=== PATIENT | female | born 1995 | race Caucasian/White ===

== ENCOUNTER 2025-05-05 14:13 | Outpatient (AMB) | payer OTHER, SELFPAY ==
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
--- OUTSIDE RECORDS SUMMARY | 2025-05-05 15:32 | XMS_ITS ---
Author Name [facility] Organization Unknown Care Team Organization Name Specialty Phone Email Start Date End Da te [facility] Reema Darden APRN Primary Care 01/06/2023 04/19/2024 [facility] Mary Dempsey Primary Care 07/09/2022
--- OUTSIDE RECORDS SUMMARY | 2025-05-05 15:32 | XMS_ITS | Clinical Summary ---
Author Organization [address] [facility] Address [address] [place] [address] Phone Care Team Providers Care Electrician Telephone Name Role Phone Elizabeth Aleman MD Primary Care Provider [phone] Allergies Active Allergy Reactions Criticality Noted Date Comments Amoxicillin Hives Medium 06/11/2012 Cefaclor Hives Medium 06/11/2012 Nitrofurantoin Monohyd/M-Cryst Anaphylaxis High 10/31 Rash/Hives/SOB Medications magnesium oxide (MAG-OX) 400 mg magnesium tablet Take 1 Tablet by mouth 2 times daily. 4 Active PNV,calcium 74-xnwh-duqrv acid (M-Kendell Plus) 27 mg iron- 1 mg tablet TAKE 1 TABLET BY MOUTH EVERY DAY 4 Active Magnesium, oxide/AA chelate, 300 mg capsule Take 1 capsule by mouth 1 (one) time each day. 4 Active magnesium oxide (MAG-OX) 400 mg (241.3 elemental magnesium) tablet Take 1 tablet (400 mg total) by mouth 2 (two) times a day. 4 Active estradioL (ESTRACE) 0.01 % (0.1 mg/gram) vaginal cream Apply 1gm pv daily x1wk then twice wkly for maintenance 42.5 g 3 5 Active nystatin-triamc inolone (MYCOLOG II) ointment Apply topically 2 (two) times a day. 15 g 3 5 Active cholecalciferol (Vitamin D3) 50 mcg (2,000 unit) tablet Take 1 tablet (2,000 Units total) by mouth 1 (one) time each day. 90 tablet 2 5 Active cyanocobalamin 2,000 mcg tablet Take 1 tablet (2,000 mcg total) by mouth 1 (one) time per week. 12 tablet 3 5 Active labetaloL (NORMODYNE) 200 mg tablet Take 1 tablet (200 mg total) by mouth 2 (two) times a day. 180 each 2 5 Active spironolactone (ALDACTONE) 25 mg tablet Take 1 tablet (25 mg total) by mouth 1 (one) time each day. 90 each 3 5 Active potassium chloride (KLOR-CON) 10 mEq CR tablet Take 1 tablet (10 mEq total) by mouth 2 (two) times a day. 180 each 3 5 Active ferrous sulfate 325 mg (65 mg elemental iron) tablet TAKE 1 TABLET BY MOUTH EVERY DAY 90 tablet 4 5 Active albuterol HFA (ProAir HFA) 90 mcg/actuation inhalerIndicati ons:Chronic cough,Recurrent URI (upper respiratory infection) Inhale 2 puffs by mouth every 4 (four) hours if needed for wheezing or shortness of breath. 8.5 g 3 5 Active tirzepatide, weight loss, (Zepbound) 2.5 mg/0.5 mL injection Inject 0.5 mL (2.5 mg total) under the skin every 7 (seven) days. 2 mL 1 5 Active Additional Information Patient not taking.Reported on 04/25/2025 norethindrone (LORRAINE MULLER H EATHER,MICRONOR ) 0.35 mg tablet Take 1 tablet (0.35 mg total) by mouth 1 (one) time each day. 84 tablet 3 5 026 Active norethindrone (YOHANALORRAINE H EATHER,MICRONOR ) 0.35 mg tablet Take 1 tablet (0.35 mg total) by mouth 1 (one) time each day. 84 tablet 3 4 025 Discontin u([facility]) Hospital, Clinic, or Other Facility Administered Medication Ordered Dose Route Frequency Start Date End Date Status dextromethorphan-guai fenesin 5-100 mg/5 mL liquid 5 mLIndications:Chronic cough 5 mL oral 3 times daily PRN 07/07/2024 Active Active Problems Problem Noted Date Diagnosed Date HTN (hypertension), benign 11/02/2024 Vitamin D deficiency 11/02/2024 Vitamin B12 deficiency 11/02/2024 Anemia during in third trimester 12/28 Overview (06/22/2024): Cutoff hemoglobin levels: First trimester <11.0 Second trimester <10.5 Third trimester <11.0 <10.0 -If micro or normocytic anemia - tx with oral Fe (sulfate or gluconate) every other day, repeat CBC 2-3 weeks -If normalized, continue until 6 weeks -If not normalized, make sure compliant and if so, refer to Heme for iron infusion -If macrocytic anemia with MCV>100, then order B12 and folate levels and treat prn, recheck in 2-3 weeks -If normalized, continue until 6 weeks -If not, make sure compliant and if so, refer to Heme Gestational hypertension 12/14/2023 Overview (06/22/2024): 12/14/2023- Triage elevated BP 154/86 and 140/78. Needs repeat PCR if elevated 12/24: bp 147/86, preeclamptic labs today 01/27: instructed to stop the labetolol by dr messer, if elevated bp [facility] to [facility] if continue elvated transfer needed for inpt care of elevated bp since pt is <35wks, she is suspected preeclampsia even though labs are not showing. CBC, AST, ALT, creatinine and P/C ratio at diagnosis- normal labs, PCR-0.29 Repeat serum labs and P/C weekly- Assess growth at time of diagnosis and Q4 weeks Weekly NST at diagnosis (if <32 weeks consider MFM consult) If blood pressures in severe range patient needs inpatient evaluation. Diagnose and treat as pre-eclampsia with severe features Deliver at 37 weeks BP check 1 week PP ASA 162 mg daily starting at 12 weeks in future pregnancies for pre-eclampsia prevention Order Referral to PCP Hypokalemia 12/14/2023 Overview (06/22/2024): Taking potasium supplements Referred to [facility] Marijuana use 08/21/2023 Overview (06/22/2024): + intake 3/1 + Ovarian cyst, left 08/12/2023 Overview (06/22/2024): 08/12: 1.9x1.9x2.0 Subchorionic bleed 08/12/2023 Overview (06/22/2024): 08/12: small subchorionic bleeding 3.3x.5x2.3 counseled pt nothing in vagina until resolved f/u if excess bleeding Anxiety associated with depression 12/21/2013 Overview (06/22/2024): Stopped Prozac and trazadone first trimester. 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 Overview (06/22/2024): 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 FOB to be tested- order placed through [facility]- test results are negative for FOB (results sent to scanning) IBS (irritable bowel syndrome) 06/11/2012 Encounters Date Type Department Care Team Description 04/25/2025 2:15 PM EDT Office Visit Obstetrics and Gynecology [address] [phone] Hill, Noemi, CNM Surveillance of contraceptive pill (Primary Dx) 04/01/2025 Telephone Internal Medicine [facility] [address] [phone] Elizabeth Aleman MD 03/18/2025 Telephone Internal Medicine [address] [phone] Elizabeth Aleman MD 03/17/2025 2:30 PM EDT Office Visit Internal Medicine [address] [phone] Tania Rutherford NP Primary hypertension (Primary Dx); BMI 45.0-49.9, adult (CMS/HCC V24, CMS/HCC V28); Low back pain with sciatica, sciatica laterality unspecified, unspecified back pain laterality, unspecified chronicity; Chronic cough; Recurrent URI (upper respiratory infection) 02/10/2025 2:30 PM EDT Office Visit Nephrology [address] [phone] Shashi Howard MD Hypokalemia (Primary Dx); Hypomagnesemia; HTN (hypertension), benign 02/02/2025 11:00 AM EDT Office Visit Obstetrics and Gynecology [address] [phone] Jn Bradford CNM Irregular menstrual cycle (Primary Dx); Oral contraceptive pill surveillance; Elevated blood pressure reading in office with diagnosis of hypertension from Last 3 Months Immunizations Name Administration Dates Next Due Influenza Quadravalent, MDCK , 0.5ml, preservative free (Flucelvax) 6mo and older 09/04/2023 Influenza trivalent, 0.5mL, preservative free (Fluarix; FluLaval; Fluzone) ages 6mo and older (Afluria) 3 years and older 05/24/2014 Influenza, Unspecified 09/04/2022 Moderna SARS-CoV-2 COVID-19, mRNA, LNP-S, preservative free 07/26/2022,09/24/2021,01/31/2021,2020 Tdap Tetanus diptheria acell ular pertussis (Boostrix; Adacel) 7yo and older 12/25/2023,06/02/2014 Varicella live (Varivax) 12m o and older 04/06/2024 Surgical History Surgery Date Site/Laterality Comments SECTION 07/02/2014 PROCEDURE: HISTORICAL DELIVERY Medical History Medical History Date Comments Anxiety and depression DX:Anxiet y and depression; COMMENT: uses MJ Migraine with aura DX:Migraine w ith aura Cystic fibrosis carrier DX:Cysti c fibrosis carrier Hypokalemia DX:Hypokalemia Hypomagnesemia DX:Hypomagnesemi a Family History Medical History Relation Name Comments Breast cancer Aunt paternal aunt Other: heart issues Father Dementia Mother Hypertension Mother Colon cancer Neg Hx Ovarian cancer Neg Hx Relation Name Status Comments Aunt Brother Alive Father Alive Mother Alive Sister 1 Alive Sister 2 Alive Social History Tobacco Use Types Packs/Day Years Used Date Smoking Tobacco: Former Smokeless Tobacco: Never Tobacco Cessation:Counseling Given: Not Answered Alcohol Use Standard Drinks/Week Comments No 0 (1 standard drink = 0.6 oz pur e alcohol) Comments No Sex and Gender Information Value Date Recorded Sex Assigned at Not on file Legal Sex Female 6:49 AM EST Gender Identity Not on file Sexual Orientation Not on file Obstetrics History Para Term AB IAB SAB Ectopic Multiple Livin g Live Births 2 2 2 2 2 Date Outcome GA Total Labor Labor/2nd/3rd Weight Sex Type Anes PTL Lilliana A1 A5 Name Clin 2013 Term 38w 5d 24h 00m/ 2977 g (105 oz) M CS-Un spec [facility] Comments:Failed IOL, p reecllampsia 2023 Term 37w 2d M CS-Un spec Livin g Last Filed Vital Signs Vital Sign Reading Time Taken Comments Blood Pressure 129/77 04/25/2025 2:23 PM EDT Pulse 66 04/25/2025 2:23 PM EDT Temperature 36.4 C (97.6 F) 03/17/2025 2:23 PM EDT Respiratory Rate 14 04/25/2025 2:23 PM EDT Oxygen Saturation 98% 03/17/2025 2:23 PM EDT Inhaled Oxygen Concentration - - Weight 110 kg (242 lb 9.6 oz) 04/25/2025 2:23 PM EDT Height 157.5 cm (5' 2 ) 03/17/2025 2:23 PM EDT Body Mass Index 44.37 03/17/2025 2:23 PM EDT Plan of Treatment Upcoming Encounters Date Type Department Care Team (Late st Contact Info) Description 09/15/2025 1:15 PM EST Office Visit Nephrology [facility] [address] [place] [phone] Shashi Howard MD [address] [facility] [address] [place] [phone] 09/19/2025 2:30 PM EST Office Visit Internal Medicine - [place] [address] [facility] [address] [place] [phone] Elizabeth Aleman MD [address] [place] [phone] Health Maintenance Due Date Last Done Comments Hepatitis B Vaccines (1 of 3 - 19+ 3-dose series) 2014 Social Influencers of Health Screening 08/04/2022 Depression Screening 09/01/2024 COVID-19 Vaccine ( season) 2025 07/30/2022, 07/26/2022, 09/24/2021, Additional history exists Influenza Vaccine (#1) 2025 , 09/04/2022, 05/24/2014 Hypertension/CHF/CAD Annual BMP Blood Test 11/17/2025 11/17/2024, 06/21/2024, 06/21/2024, Additional history exists Cervical Cancer Screening: Pap Smear 04/16/2026 04/16/2023, 04/16/2023, 07/25/2020 Cholesterol Screening (Lipid Panel) 06/21/2029 06/21/2024, 06/21/2024 DTaP,Tdap,and Td Vaccines (3 - Td or Tdap) 12/24/2033 12/25/2023, 06/02/2014 HIV Screening Completed 08/20/2023 Hepatitis C Screening Completed 08/20/2023 Varicella Vaccines Aged Out 04/06/2024, 02/25/2024 No longer eligible based on patient's age to complete this topic HIB Vaccines Aged Out No longer eligi ble based on patient's age to complete this topic HPV Vaccines Aged Out No longer eligi ble based on patient's age to complete this topic Hepatitis A Vaccines Aged Out No long er eligible based on patient's age to complete this topic IPV Vaccines Aged Out No longer eligi ble based on patient's age to complete this topic MMR Vaccines Aged Out No longer eligi ble based on patient's age to complete this topic Meningococcal ACWY Vaccine Aged Out N o longer eligible based on patient's age to complete this topic Meningococcal B Vaccine Aged Out No l onger eligible based on patient's age to complete this topic Pneumococcal Vaccine: Pediatrics (0 to 5 Years) and At-Risk Patients (6 to 49 Years) Aged Out No longer eligible based on patient's age to complete this topic RSV Immunization Patients Under 20 months Aged Out No longer eligible based on patient's age to complete this topic Procedures Procedure Name Priority Date/Time Associated Diagnosis Comments HCG, QUANTITATIVE Routine 02/02/2025 11: 25 AM EDT Irregular menstrual cycle POC PREGANCY, URINE SCREENING Routine 02/02/2025 11:09 AM EDT Irregular menstrual cycle COMPREHENSIVE METABOLIC PANEL Routine 11/17/2024 11:46 AM EDT Anemia during in third trimester Hypomagnesemia Hypokalemia LIPID PANEL Routine 06/21/2024 HEPATITIS C SCREENING Routine 08/20/2023 HIV SCREENING Routine 08/20/2023 HPV Routine 04/16/2023 from Last 3 Months or Most Recently Relevant to Health Maintenance Results * HCG, quantitative (02/02/2025 11:25 AM EDT) hCG Quant <1 mIU/mL LAB CHEMISTRY METHOD 02/02/2025 3:02 PM EDT [facility] Blood Venous blood specimen / Unknown Venipuncture / Unknown 02/02/2025 11:25 AM EDT 02/02/2025 11:25 AM EDT Narrative [facility] - 02/02/2025 3:02 PM EDT Quantitative HCG Reference Ranges Time after Conception MIU/ML 0.2-1 Week 5-50 1-2 Weeks 50-500 2-3 Weeks 100-5,000 3-4 Weeks 500-10,000 4-5 Weeks 1,000-50,000 5-6 Weeks 10,000-100,000 6-8 Weeks 15,000-200,000 2-3 Months 10,000-100,000 2nd Trimester 1,000-94,000 3rd Trimester 2,500-90,000 Non- Females 1-3 [facility] LAB BLOOD ORDERABLES Final Re sult [facility] [address] [place] [address], [place] [phone] * POC , urine NO CHARGE screening manually resulted (02/02/2025 11:09 AM EDT) HCG, Ur POC Negative Negative POC hCG Int QC Pass? Yes Yes Urine Urine specimen obtained by clean catch procedure / Unknown 02/02/2025 11:09 AM EDT [facility] [place] [facility] TEST ENTER/EDIT ORDERABLES Final Result * Comprehensive metabolic panel (11/17/2024 11:46 AM EDT) Sodium 136 133 - 145 mmol/L LAB CHEMISTRY METHOD 11/17/2024 4:19 PM EDT [facility] Potassium 3.6 3.5 - 5.5 mmol/L LAB CHEMISTRY METHOD 11/17/2024 4:19 PM EDT [facility] Chloride 103 96 - 110 mmol/L LAB CHEMISTRY METHOD 11/17/2024 4:19 PM [facility] CO2 28 21 - 32 mmol/L LAB CHEMISTRY METHOD 11/17/2024 4:19 PM [facility] Anion Gap 5 3 - 11 LAB CHEMISTRY METHOD 11/17/2024 4:19 PM [facility] Glucose 93 70 - 100 mg/dL LAB CHEMISTRY METHOD 11/17/2024 4:19 PM [facility] BUN 10 5 - 25 mg/dL LAB CHEMISTRY METHOD 11/17/2024 4:19 PM [facility] Creatinine 0.64 0.50 - 1.10 mg/dL LAB CHEMISTRY METHOD 11/17/2024 4:19 PM [facility] eGFR 123 >=60 mL/min/1. 73m2 LAB CHEMISTRY METHOD 11/17/2024 4:19 PM [facility] Comment:Calculation based on the Chronic Kidney Disease Epidemiology Collaboration (CKD-EPI) equation refit without adjustment for race. BUN/Creatinine Ratio 15.6 LAB CHEMISTRY METHOD 11/17/2024 4:19 PM [facility] Calcium 9.5 8.5 - 10.5 mg/dL LAB CHEMISTRY METHOD 11/17/2024 4:19 PM [facility] AST (SGOT) 14 10 - 42 unit/L LAB CHEMISTRY METHOD 11/17/2024 4:19 PM [facility] ALT (SGPT) 27 10 - 60 unit/L LAB CHEMISTRY METHOD 11/17/2024 4:19 PM [facility] Alkaline Phosphatase 100 42 - 121 unit/L LAB CHEMISTRY METHOD 11/17/2024 4:19 PM [facility] Total Protein 7.2 6.0 - 8.0 g/dL LAB CHEMISTRY METHOD 11/17/2024 4:19 PM [facility] Albumin 3.8 3.2 - 5.0 g/dL LAB CHEMISTRY METHOD 11/17/2024 4:19 PM EDT [facility] Total Bilirubin 0.4 0.0 - 1.4 mg/dL LAB CHEMISTRY METHOD 11/17/2024 4:19 PM EDT [facility] Blood Venous blood specimen / Unknown Venipuncture / Unknown 11/17/2024 11:46 AM EDT 11/17/2024 11:46 AM EDT Elizabeth Aleman MD LAB BLOOD ORDERABLES Final Res ult [facility] [address] [place] [address], [place] [phone] * (ABNORMAL) Lipid panel (06/21/2024) [facility] LDL/HDL Ratio 3 0 - 4 Triglycerides 80 0 - 150 mg/dL Cholesterol 193 0 - 200 mg/dL HDL 66 >=40 mg/dL LDL Cholesterol 111(A) 0 - 100 mg/dL Blood Venous blood specimen / Unknown Result [facility] LAB BLOOD ORDERABLES Lisa l Result * HIV Screening (08/20/2023) [facility] HIV Screening Abstracted Result [facility] HEALTH MAINTENANCE Final Result * Hepatitis C Screening (08/20/2023) [facility] Hepatitis C Screening Abstracted Result [facility] Historical Provider HEALTH MAINTENANCE Final Result * Cervical Cancer Screening: HPV (04/16/2023) [facility] Cervical Cancer Screening: HPV Negative [facility] HEALTH MAINTENANCE Final Result from Last 3 Months or Most Recently Relevant to Health Maintenance Insurance [facility] [place] [address] Care Teams Electrician Telephone Relationship Specialty Start Date End Date Elizabeth Aleman MD [address] [place] [address] [address] [place] [phone] PCP - General Internal Medicine 10/26/24
== END 2025-05-05 14:39 | disposition home or self-care (01) ==
LOC: HO.HSM 14:14
PROVIDERS: PCP Internal Medicine; Referring Provider Internal Medicine; Visit Provider Registered Nurse
DX: M54.16 Radiculopathy, lumbar region (principal)
CPT/HCPCS: 99214

== ENCOUNTER → 2025-05-05 14:13 | Outpatient (BNVA) | payer OTHER, SELFPAY | PROVIDERS: PCP Internal Medicine; Referring Provider Internal Medicine; Visit Provider Registered Nurse | DX: M54.16 Radiculopathy, lumbar region (principal) | CPT/HCPCS: 99212 ==

== ENCOUNTER 2025-05-19 19:52 | Outpatient (REF) | payer OTHER, SELFPAY ==
--- NOTE | ~2025-05-19 | MR_ITS ---
EXAMINATION: MR LUMBAR SPINE WITHOUT IV CONTRAST History: M54.16 - Radiculopathy, lumbar region Technique: Sagittal T1, T2 and STIR, and axial T1 and T2 weighted images of the lumbar spine were obtained per departmental protocol. Comparison: There are no prior studies available for comparison. Findings: The vertebral bodies maintain normal height and alignment. There is a rounded focus of increased intensity in the L1 vertebral body on both T1 and T2-weighted sequences, consistent with a hemangioma. Bone marrow signal intensity is otherwise normal. The intervertebral discs maintain normal height and hydration. At T12-L1,there is no evidence of disc herniation, central spinal stenosis, or neural foraminal narrowing. At L1-2, there is no evidence of disc herniation, central spinal stenosis, or neural foraminal narrowing. At L2-3, there is no evidence of disc herniation, central spinal stenosis, or neural foraminal narrowing. There is a 1.3 cm probable synovial cyst on the left projecting posteriorly. At L3-4, there is no evidence of disc herniation, central spinal stenosis, or neural foraminal narrowing. At L4-5, there is no evidence of disc herniation, central spinal stenosis, or neural foraminal narrowing. At L5-S1, there is no evidence of disc herniation, central spinal stenosis, or neural foraminal narrowing. There is a 1.1 cm probable synovial cyst on the left projecting exteriorly. The conus terminates at the L1 level and demonstrates normal signal intensity. The visualized paraspinal soft tissues are unremarkable. MR/MR lumbar spine wo con Impression: Probable left-sided synovial cysts at the L2-3 and L5-S1 levels, as described. Otherwise unremarkable MRI of the lumbar spine. Electronically signed by: Adonay Ramsey MD 05/20/2025 07:37 AM EDT
== END 2025-05-19 19:53 | disposition home or self-care (01) ==
LOC: HO.MRI 19:52
PROVIDERS: PCP Internal Medicine; Visit Provider Registered Nurse
DX: M54.16 Radiculopathy, lumbar region (principal)
CPT/HCPCS: 72148

== ENCOUNTER → 2025-05-19 19:52 | Outpatient (BNV) | payer OTHER, SELFPAY | PROVIDERS: PCP Internal Medicine; Visit Provider Radiology Diagnostic Radiology | DX: M54.16 Radiculopathy, lumbar region (principal) | CPT/HCPCS: 72148 ==

== ENCOUNTER 2025-06-08 10:14 | Outpatient (AMB) | payer OTHER, SELFPAY ==
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
== END 2025-06-08 11:43 | disposition home or self-care (01) ==
LOC: HO.HSM 10:15
PROVIDERS: PCP Internal Medicine; Visit Provider Registered Nurse
DX: M71.38 Other bursal cyst, other site (principal); M54.16 Radiculopathy, lumbar region
CPT/HCPCS: 99214

== ENCOUNTER → 2025-06-08 10:14 | Outpatient (BNVA) | payer OTHER, SELFPAY | PROVIDERS: PCP Internal Medicine; Visit Provider Registered Nurse | DX: M71.38 Other bursal cyst, other site (principal); M54.16 Radiculopathy, lumbar region | CPT/HCPCS: 99212 ==

== ENCOUNTER 2025-07-21 15:48 | Outpatient (AMB) | payer OTHER, SELFPAY ==
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
--- OUTSIDE RECORDS SUMMARY | 2025-07-21 20:47 | XMS_ITS | Clinical Summary ---
Author Organization 175 [facility] Address [address] [place] [address] Phone Care Team Providers Care Physical Therapy Nurse Name Role Phone Elizabeth Aleman MD Primary Care Provider [phone] Allergies Active Allergy Reactions Criticality Noted Date Comments Amoxicillin Hives Medium 06/11/2012 Cefaclor Hives Medium 06/11/2012 Nitrofurantoin Monohyd/M-Cryst Anaphylaxis High 10/31 Rash/Hives/SOB Medications estradioL (ESTRACE) 0.01 % (0.1 mg/gram) vaginal cream Apply 1gm pv daily x1wk then twice wkly for maintenance 42.5 g 3 10/25/19 25 Active cholecalciferol (Vitamin D3) 50 mcg (2,000 unit) tablet Take 1 tablet (2,000 Units total) by mouth 1 (one) time each day. 90 tablet 2 11/03/19 25 Active cyanocobalamin 2,000 mcg tablet Take 1 tablet (2,000 mcg total) by mouth 1 (one) time per week. 12 tablet 3 11/03/19 25 Active labetaloL (NORMODYNE) 200 mg tablet Take 1 tablet (200 mg total) by mouth 2 (two) times a day. 180 each 2 11/03/19 25 Active potassium chloride (KLOR-CON) 10 mEq CR tablet Take 1 tablet (10 mEq total) by mouth 2 (two) times a day. 180 each 3 02/11/20 25 Active ferrous sulfate 325 mg (65 mg elemental iron) tablet TAKE 1 TABLET BY MOUTH EVERY DAY 90 tablet 4 03/17/20 25 Active albuterol HFA (ProAir HFA) 90 mcg/actuation inhalerIndicati ons:Chronic cough,Recurrent URI (upper respiratory infection) Inhale 2 puffs by mouth every 4 (four) hours if needed for wheezing or shortness of breath. 8.5 g 3 03/17/20 25 Active norethindrone (OYHANA,LORRAINE,H EATHER,MICRONOR ) 0.35 mg tablet Take 1 tablet (0.35 mg total) by mouth 1 (one) time each day. 84 tablet 3 04/25/20 25 Active magnesium oxide (MAG-OX) 400 mg (241.3 elemental magnesium) tablet TAKE 1 TABLET BY MOUTH TWICE A DAY 180 tablet 3 05/16/20 25 Active albuterol HFA (PROAIR HFA ; PROVENTIL HFA ; VENTOLIN HFA) 90 mcg/actuation inhaler Inhale 2 puffs by mouth every 6 (six) hours if needed for wheezing or shortness of breath. 1 each 05/24/20 25 Active medroxyPROGESTE Chilo (PROVERA) 5 mg tablet Take 1 tablet (5 mg total) by mouth 1 (one) time each day. 14 tablet 3 06/01/20 25 Active triamcinolone (KENALOG) 0.025 % ointment Apply 3-4x/day to affected area 15 g 1 06/01/20 25 Active fluconazole (DIFLUCAN) 150 mg tablet TAKE 1 TABLET (150 MG TOTAL) BY MOUTH 1 (ONE) TIME FOR 1 DOSE. TAKE ONE TAB REPEAT DOSE IN 3DAYS 06/01/20 25 Active magnesium oxide (MAG-OX) 400 mg magnesium tablet Take 1 Tablet by mouth 2 times daily. 03/11/20 24 025 Discontinued PNV,calcium 17-jykq-lftqy acid (M-Kendell Plus) 27 mg iron- 1 mg tablet TAKE 1 TABLET BY MOUTH EVERY DAY 05/10/20 24 025 Discontinued Magnesium, oxide/AA chelate, 300 mg capsule Take 1 capsule by mouth 1 (one) time each day. 11/27/19 025 Discontinued nystatin-triamc inolone (MYCOLOG II) ointment Apply topically 2 (two) times a day. 15 g 3 10/25/19 25 025 Discontinued spironolactone (ALDACTONE) 25 mg tablet Take 1 tablet (25 mg total) by mouth 1 (one) time each day. 90 each 3 02/11/20 25 025 Discontinued medroxyPROGESTE Chilo (PROVERA) 2.5 mg tablet Take 1 tablet (2.5 mg total) by mouth 1 (one) time each day. 90 tablet 3 05/19/20 025 Discontinued nystatin (MYCOSTATIN) 100,000 unit/mL suspension Swish and swallow 5 mL QID for 1 week 150 mL 05/31/20 Discontinued hydrocortisone (ANUSOL-HC) 2.5 % rectal cream Insert into the rectum 4 (four) times a day if needed for hemorrhoids (rectal discomfort). 30 g 5 05/31/20 025 Discontinued ondansetron (ZOFRAN) 4 mg tablet Take 1 tablet (4 mg total) by mouth every 8 (eight) hours if needed for nausea or vomiting for up to 7 days. 20 tablet 06/20/20 gabapentin (NEURONTIN) 300 mg capsule PLEASE SEE ATTACHED FOR DETAILED DIRECTIONS 02/10/20 025 Discontinued meloxicam (MOBIC) 15 mg tablet Take 1 tablet (15 mg total) by mouth 1 (one) time each day. 06/08/20 025 Discontinued Hospital, Clinic, or Other Facility Administered Medication Ordered Dose Route Frequency Start Date End Date Status dextromethorphan-guai fenesin 5-100 mg/5 mL liquid 5 mLIndications:Chronic cough 5 mL oral 3 times daily PRN 07/07/2024 Active Active Problems Problem Noted Date Diagnosed Date HTN (hypertension), benign 11/02/2024 Vitamin D deficiency 11/02/2024 Vitamin B12 deficiency 11/02/2024 Anemia during in third trimester 04/29 /2024 Overview (06/22/2024): Cutoff hemoglobin levels: First trimester [...] dr messer, if elevated bp send to [facility] if continue elvated transfer needed for inpt [...] Overview (06/22/2024): Taking potasium supplements Referred to [facility] Marijuana use 08/21/2023 Overview (06/22/2024): + intake [...] [facility]), denies SI/HI Maternal varicella, non-immune 12/07/2013 Overview (06/22/2024): Offer vaccine post 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 Overview (06/22/2024): 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 FOB to be tested- order placed through [employer]- test results are negative for FOB (results sent to scanning) IBS (irritable bowel syndrome) 06/11/2012 Encounters Date Type Department Care Team Description 07/06/2025 Telephone Gastroenterology - [place] 175 [facility] 175 [facility] [address] [place] [address] Jing Cole MD 07/04/2025 Telephone Gastroenterology - [place] [address] [address] [place] [address] Miriam Seth NP 06/29/2025 2:55 PM EDT Lab Draw Station - [facility] [address] [place] [address] Vitamin B12 deficiency; Transaminitis; Bloody diarrhea; Generalized abdominal pain 06/22/2025 2:00 PM EDT Consult Gastroenterology - [place] [address] [place] [address] Miriam Seth NP Bloody diarrhea (Primary Dx); Generalized abdominal pain; Nausea and vomiting in adult patient; Marijuana use, continuous; Transaminitis; Vitamin B12 deficiency 06/21/2025 Telephone Internal Medicine [facility] [address] [phone] Elizabeth Aleman MD 06/20/2025 5:25 PM EDT - 06/20/2025 11:02 PM EDT Emergency [facility] Emergency [address] [place] [phone] Leann Colby MD Nausea and vomiting, unspecified vomiting type (Primary Dx); Fatty liver Discharge Disposition: Home or Self Care 06/20/2025 Telephone Internal Medicine [facility] [address] [phone] Elizabeth Aleman MD 06/20/2025 Telephone Internal Medicine [address] [phone] Elizabeth Aleman MD 06/10/2025 Results Follow-Up Internal Medicine - [address] [phone] Leonard Ovalle [place] 06/09/2025 11:45 AM EDT Office Visit Internal Medicine [address] [phone] Elizabeth Aleman MD Sore throat (Primary Dx) 06/02/2025 1:15 PM EDT Ancillary Procedure Pulmonology - [address] [phone] LEAVITT (dyspnea on exertion) 06/02/2025 Results Follow-Up Pulmonology - [address] [phone] Lennox Anderson MD 06/01/2025 Results Follow-Up Internal Medicine [address] [phone] Elizabeth Aleman MD 05/31/2025 1:45 PM EDT Office Visit Internal Medicine [address] [phone] Elizabeth Aleman MD HTN (hypertension), benign (Primary Dx); Hypokalemia; Anemia during in third trimester; Vitamin B12 deficiency; Oral pain 05/31/2025 Telephone Obstetrics and Gynecology [address] [phone] Jn Bradford CNM 05/30/2025 Telephone Internal Medicine - [address] [phone] Dharmesh Nieshawilfredo [place] 05/24/2025 3:00 PM EDT Consult Pulmonology [address] [phone] Sheela Adams MD LEAVITT (dyspnea on exertion) (Primary Dx); Recurrent URI (upper respiratory infection); Marijuana smoker; Loud snoring 05/19/2025 3:15 PM EDT Office Visit Obstetrics & Gynecology - [address] [phone] Jn Bradford CNM Oral contraceptive pill surveillance (Primary Dx); Breakthrough bleeding on control pills 05/16/2025 Telephone Obstetrics and Gynecology [address] [phone] Noemi Hill CNM 05/10/2025 2:45 PM EDT Office Visit Internal Medicine [address] [phone] Elizabeth Aleman MD Nose pain (Primary Dx); Hypokalemia; Primary hypertension 05/09/2025 Telephone Internal Medicine [address] [phone] Elizabeth Aleman MD 04/25/2025 2:15 PM EDT Office Visit Obstetrics and Gynecology [address] [phone] Noemi Hill CNM Surveillance of contraceptive pill (Primary Dx) from Last 3 Months Immunizations Immunization Administration Dates Next Due Influenza Quadravalent, MDCK [...] M CS-Un spec Epidur al Livin g Keon Barnes Delivery Location:[facility] Comments:Failed IOL, p reecllampsia 2023 Term 37w 2d M CS-Un spec Livin g Last Filed Vital Signs Vital Sign Reading Time Taken Comments Blood Pressure 130/80 06/22/2025 2:06 PM EDT Pulse 69 06/22/2025 2:06 PM EDT Temperature 36.6 C (97.9 F) 06/20/2025 8:15 PM EDT Respiratory Rate 20 06/20/2025 8:15 PM EDT Oxygen Saturation 97% 06/22/2025 2:06 PM EDT Inhaled Oxygen Concentration - - Weight 95.3 kg (210 lb 3.2 oz) 06/22/2025 2:06 P M EDT Height 152.4 cm (5') 06/22/2025 2:06 PM EDT Body Mass Index 41.05 06/22/2025 2:06 PM EDT Plan of Treatment Upcoming Encounters Date Type Department Care Team (Late st Contact Info) Description 07/27/2025 1:[address] Scan - [address] [phone] 08/18/2025 4:15 PM EST Office Visit Pulmonology - [place] 175 [facility] 200 [place] [phone] Sheela Adams MD [address] [place] [phone] 09/05/2025 3:00 PM EST Appointment [facility] Endoscopy [address] [place] [phone] Jing Cole MD 299 [facility] 419 [place] [address] 09/15/2025 1:15 PM EST Office Visit Nephrology - [address] [phone] Shashi Howard MD 3550 [facility] 204 [place] [phone] 09/19/2025 2:30 PM EST Office Visit Internal Medicine - [address] [place] [address] Elizabeth Aleman MD [address] [place] [address] Health Maintenance Due Date Last Done Comments Hepatitis B Vaccines (1 of 3 - 19+ 3-dose series) 2014 HPV Vaccines (1 - 3-dose SCDM series) 2022 Social Influencers of Health Screening 08/04/2022 Depression Screening 09/01/2024 COVID-19 Vaccine ( season) 2025 07/30/2022, 07/26/2022, 09/24/2021, Additional history exists Influenza Vaccine (#1) 2025 , 09/04/2022, 05/24/2014 Hypertension/CHF/CAD Annual BMP Blood Test 06/20/2026 06/20/2025, 05/31/2025, 11/17/2024, Additional history exists Cervical Cancer Screening: HPV 04/16/2028 04/16/2023 Cholesterol Screening (Lipid Panel) 06/21/2029 06/21/2024, 06/21/2024 DTaP,Tdap,and Td Vaccines (3 - Td or Tdap) 12/24/2033 12/25/2023, 06/02/2014 RSV Immunization Adult Patients (1 - 1-dose 75+ series) 2070 HIV Screening Completed 08/20/2023 Hepatitis C Screening [...] on patient's age to complete this topic Goals Goal Patient Goal Type Associated Problems Recent Progress Patient-Stated? Author Autogenerat ed Goal Care Plan Autogenerated Problem No Soumya Guerrero Procedures Procedure Name Priority Date/Time Associated Diagnosis Comments CALPROTECTIN, STOOL Routine 06/29/2025 2 :56 PM EDT Bloody diarrhea Generalized abdominal pain HELICOBACTER PYLORI ANTIGEN, STOOL Routine 06/29/2025 2:56 PM EDT Bloody diarrhea Generalized abdominal pain CBC WITH AUTO DIFFERENTIAL Routine 06/22/2025 2:30 PM EDT HTN (hypertension), benign Hypokalemia Vitamin B12 deficiency LEAVITT (dyspnea on exertion) Primary hypertension GLIADIN ANTIBODIES, SERUM Routine 06/22/2025 2:30 PM EDT Diarrhea, unspecified type Generalized abdominal pain ENDOMYSIAL ANTIBODY, IGA Routine 06/22/2025 2:30 PM EDT Diarrhea, unspecified type Generalized abdominal pain TISSUE TRANSGLUTAMINASE, IGA Routine 06/22/2025 2:30 PM EDT Diarrhea, unspecified type Generalized abdominal pain IMMUNOGLOBULIN IGA Routine 06/22/2025 2: 30 PM EDT Diarrhea, unspecified type Generalized abdominal pain CBC AND DIFFERENTIAL Routine 06/22/2025 2:30 PM EDT HTN (hypertension), benign Hypokalemia Vitamin B12 deficiency LEAVITT (dyspnea on exertion) Primary hypertension THYROID STIMULATING HORMONE WITH REFLEX TO FREE T4 AND FREE T3 Routine 06/22/2025 2:30 PM EDT HTN (hypertension), benign Hypokalemia Vitamin B12 deficiency LEAVITT (dyspnea on exertion) Primary hypertension IMMUNOGLOBULIN IGA Routine 06/22/2025 2: 30 PM EDT Diarrhea, unspecified type Generalized abdominal pain TISSUE TRANSGLUTAMINASE, IGG Routine 06/22/2025 2:30 PM EDT Diarrhea, unspecified type Generalized abdominal pain C-REACTIVE PROTEIN Routine 06/22/2025 2: 30 PM EDT Diarrhea, unspecified type Generalized abdominal pain ECG ANNOTATED 06/22/2025 CT ABDOMEN PELVIS W CONTRAST STAT 06/20/2025 8:49 PM EDT ECG 12-LEAD STAT 06/20/2025 6:12 PM EDT HCG, SERUM, QUALITATIVE STAT Add-on 06/20/2025 1:45 PM EDT MAGNESIUM STAT Add-on 06/20/2025 1:45 PM EDT CBC WITH AUTO DIFFERENTIAL STAT 06/20/2025 1:45 PM EDT LIPASE STAT 06/20/2025 1:45 PM EDT COMPREHENSIVE METABOLIC PANEL STAT 06/20/2025 1:45 PM EDT CBC AND DIFFERENTIAL STAT 06/20/2025 1:45 PM EDT POC RAPID [id number], MOLECULAR Routine 06/09/2025 12:38 PM EDT Sore throat POC RAPID STREP A Routine 06/09/2025 12: 37 PM EDT Sore throat POC INFLUENZA A/B Routine 06/09/2025 12: 33 PM EDT Sore throat PULMONARY FUNCTION TESTING Routine 06/02/2025 2:33 PM EDT LEAVITT (dyspnea on exertion) CBC WITH AUTO DIFFERENTIAL Routine 05/31/2025 2:19 PM EDT HTN (hypertension), benign Hypokalemia Anemia during in third trimester Vitamin B12 deficiency MAGNESIUM Routine 05/31/2025 2:19 PM EDT Hypokalemia Primary hypertension COMPREHENSIVE METABOLIC PANEL Routine 05/31/2025 2:19 PM EDT HTN (hypertension), benign Hypokalemia Anemia during in third trimester Vitamin B12 deficiency CBC AND DIFFERENTIAL Routine 05/31/2025 2:19 PM EDT HTN (hypertension), benign Hypokalemia Anemia during in third trimester Vitamin B12 deficiency SEDIMENTATION RATE Routine 05/31/2025 2: 19 PM EDT HTN (hypertension), benign Hypokalemia Anemia during in third trimester Vitamin B12 deficiency MONONUCLEOSIS SCREEN Routine 05/31/2025 2:19 PM EDT HTN (hypertension), benign Hypokalemia Anemia during in third trimester Vitamin B12 deficiency LIPID PANEL Routine 06/21/2024 HM HEPATITIS C SCREENING Routine 08/20/2023 HM HIV SCREENING Routine 08/20/2023 HM HPV Routine 04/16/2023 from Last 3 Months or Most Recently Relevant to Health Maintenance Results * Calprotectin, stool (06/29/2025 2:56 PM EDT) Calprotectin, Fecal <5.0 <50 mcg/g 07/04/2025 3:23 PM EST [facility] Comment: <50 mcg/g Normal 50 - 120 mcg/g Borderline >120 mcg/g Abnormal Borderline results suggest repeat testing in 4 to 6 weeks. Test performed at [facility], [address], [place] [address] Hyacinth Collins MD, PhD - Trimmer And Borer Machine Operator Stool Rectum structure / Unknown Non-blood Collection / Unknown 06/29/2025 2:56 PM EDT 06/29/2025 2:56 PM EDT Miriam Seth NP LAB BODY FLUIDS AND STOOLS ORDVidhi RIVER Final Result [facility] [address] [place] [address] * Helicobacter pylori antigen, stool (06/29/2025 2:56 PM EDT) Helicobacter Pylori Ag Not detected Not detected 07/05/2025 1:20 PM EST [facility] Comment: This test was performed at [facility] using a chemiluminescent immunoassay intended for the qualitative determination of helicobacter pylori (H. pylori) antigen in human stool. The test is an aid in the diagnosis of patients suspected of H. pylori infection and to measure post therapy response from patients. Assay results should be used in conjunction with other clinical and laboratory data to assist the clinician in making individual patient management decisions. A negative test result does not preclude the possibility of the presence of H. pylori antigen in the specimen, which may occur if the level of antigen is below the detection limit of the test. Antimicrobials, proton pump inhibitors, and bismuth preparations are known to suppress H. pylori and, if ingested, may give a false negative result. In these cases a new fecal sample should be collected and tested 14 days after treatment has stopped. Positive results from patients that have used antibiotics, PPIs, or bismuth compounds in the 14 days prior to fecal sample collection are still considered accurate. This assay has not been evaluated in a pediatric population. This test has been approved as an in vitro diagnostic by the [place] Food and Drug Administration. Test performed at [facility], [address], [place] [address] Hyacinth Collins MD, PhD - Trimmer And Borer Machine Operator Stool Rectum structure / Unknown Non-blood Collection / Unknown 06/29/2025 2:56 PM EDT 06/29/2025 2:56 PM EDT us Miriam Seth NP LAB BODY FLUIDS AND STOOLS MINAL HOLMAN Final Result Performing Organization Address City/[facility]/ZIP Co de Phone Number [facility] [address] [place] [address] * Thyroid stimulating hormone with reflex to free t4 and free t3 (06/22/2025 2:30 PM EDT) Pathologist [facility] TSH 2.04 0.40 - 4.00 mcIU/mL LAB CHEMISTRY METHOD 06/22/2025 7:27 PM EDT [facility] Blood Venous blood specimen / Unknown Venipuncture / Unknown 06/22/2025 2:30 PM EDT 06/22/2025 2:30 PM EDT Sheela Adams MD LAB BLOOD ORDERABLES Final Resul t Performing Organization Address City/[facility]/ZIP Co de Phone Number [facility] [address] [place] [address], [place] [phone] * Endomysial antibody, IgA (06/22/2025 2:30 PM EDT) Pathologist [facility] Endomysial IgA Negative Negative 06/24/2025 10:59 AM EDT [facility] Blood Venous blood specimen / Unknown Venipuncture / Unknown 06/22/2025 2:30 PM EDT 06/22/2025 2:30 PM EDT Miriam Seth MANAGER CONSTRUCTION LAB BLOOD ORDERABLES Final Resu lt Performing Organization Address City/[facility]/ZIP Co de Phone Number [facility] [address] [place] [address], [place] [phone] * (ABNORMAL) CBC auto differential (06/22/2025 2:30 PM EDT) Only the most recent of3 resultswithin the time period is included. Pathologist [facility] WBC 9.5 4.8 - 10.8 K/mcL LAB HEMETOLOGY METHOD 06/22/2025 6:32 PM EDT [facility] RBC 5.40(H) 3.80 - 4.80 M/mcL LAB HEMETOLOGY METHOD 06/22/2025 6:32 PM EDT [facility] Hemoglobin 15.7 11.5 - 16.0 g/dL LAB HEMETOLOGY METHOD 06/22/2025 6:32 PM EDT [facility] Hematocrit 46.8 35.0 - 47.0 % LAB HEMETOLOGY METHOD 06/22/2025 6:32 PM EDT [facility] MCV 86.5 79.0 - 98.0 FL LAB HEMETOLOGY METHOD 06/22/2025 6:32 PM EDT [facility] MCH 29.0 27.0 - 32.0 pcg LAB HEMETOLOGY METHOD 06/22/2025 6:32 PM [facility] MCHC 33.5 32.0 - 37.0 g/dL LAB HEMETOLOGY METHOD 06/22/2025 6:32 PM EDT [facility] RDW 14.5 11.0 - 15.0 % LAB HEMETOLOGY METHOD 06/22/2025 6:32 PM T [facility] Platelets 346 130 - 400 K/mcL LAB HEMETOLOGY METHOD 06/22/2025 6:32 PM [facility] MPV 10.1 7.0 - 11.0 FL LAB HEMETOLOGY METHOD 06/22/2025 6:32 PM EDT [facility] NRBC 0.0 <1.0 % LAB HEMETOLOGY METHOD 06/22/2025 6:32 PM EDT [facility] NRBC Absolute 0.00 <0.10 K/mcL LAB HEMETOLOGY METHOD 06/22/2025 6:[facility] Neutrophils Relative 56.0 % LAB HEMETOLOGY METHOD 06/22/2025 6:32 PM EDT [facility] Lymphocytes Relative 32.5 % LAB HEMETOLOGY METHOD 06/22/2025 6:32 PM EDT [facility] Monocytes Relative 10.5 % LAB HEMETOLOGY METHOD 06/22/2025 6:32 PM EDT [facility] Eosinophils Relative 0.3 % LAB HEMETOLOGY METHOD 06/22/2025 6:32 PM EDT [facility] Basophils Relative 0.5 % LAB HEMETOLOGY METHOD 06/22/2025 6:32 PM EDT [facility] Immature Granulocytes Relative 0.2 % LAB HEMETOLOGY METHOD 06/22/2025 6:32 PM EDT [facility] Neutrophils Absolute 5.29 1.50 - 7.00 K/mcL LAB HEMETOLOGY METHOD 06/22/2025 6:32 PM T [facility] Lymphocytes Absolute 3.07 1.00 - 5.00 K/mcL LAB HEMETOLOGY METHOD 06/22/2025 6:32 PM T [facility] Monocytes Absolute 0.99 0.20 - 1.00 K/mcL LAB HEMETOLOGY METHOD 06/22/2025 6:32 PM EDT [facility] Eosinophils Absolute 0.03 0.00 - 0.50 K/mcL LAB HEMETOLOGY METHOD 06/22/2025 6:32 PM T [facility] Basophils Absolute 0.05 0.00 - 0.20 K/mcL LAB HEMETOLOGY METHOD 06/22/2025 6:32 PM T [facility] Immature Granulocytes Absolute 0.02 0.00 - 0.03 K/mcL LAB HEMETOLOGY METHOD 06/22/2025 6:32 PM [facility] Blood Venous blood specimen / Unknown Venipuncture / Unknown 06/22/2025 2:30 PM EDT 06/22/2025 2:30 PM EDT us Sheela Adams MD LAB BLOOD ORDERABLES Final Resul t Performing Organization Address [facility]/ZIP Co de Phone Number [facility] [address] [place] [address], [place] [phone] * Gliadin antibodies, serum (06/22/2025 2:30 PM EDT) Gliadin IgA 7 <20 units LAB CHEMISTRY METHOD 06/29/2025 11:11 AM EDT [facility] Gliadin IgG 6 <20 units LAB CHEMISTRY METHOD 06/29/2025 11:11 AM EDT [facility] Gliadin IgA Antibody Negative Negative LAB CHEMISTRY METHOD 06/29/2025 11:11 AM EDT [facility] Gliadin IgG Antibody Negative Negative LAB CHEMISTRY METHOD 06/29/2025 11:11 AM EDT [facility] Blood Venous blood specimen / Unknown Venipuncture / Unknown 06/22/2025 2:30 PM EDT 06/22/2025 2:30 PM EDT us Miriam Seth NP LAB BLOOD ORDERABLES Final Resu lt Performing Organization Address City/[facility]/ZIP Co de Phone Number [facility] [address] [place] [address], [place] [phone] * Tissue transglutaminase, IgA (06/22/2025 2:30 PM EDT) Tissue Transglutaminase Ab, IgA Quant 1 <4 unit/mL LAB CHEMISTRY METHOD 06/29/2025 10:55 AM EDT [facility] Tissue Transglutaminase Ab, IgA Negative Negative LAB CHEMISTRY METHOD 06/29/2025 10:55 AM EDT [facility] Blood Venous blood specimen / Unknown Venipuncture / Unknown 06/22/2025 2:30 PM EDT 06/22/2025 2:30 PM EDT us Miriam Seth NP LAB BLOOD ORDERABLES Final Resu lt Performing Organization Address City/[facility]/ZIP Co de Phone Number [facility] [address] [place] [address], [place] [phone] * (ABNORMAL) Tissue transglutaminase, IgG (06/22/2025 2:30 PM EDT) [facility] t-Transglutamin ase (tTG) IgG 11(H) 0 - 5 U/mL 06/24/2025 9:05 PM EDT [facility] Comment: Negative 0 - 5 Weak Positive 6 - 9 Positive >9 Blood Venous blood specimen / Unknown Venipuncture / Unknown 06/22/2025 2:30 PM EDT 06/22/2025 2:30 PM EDT Narrative [facility] - 06/24/2025 9:05 PM EDT Performed at: [facility] [id number] Insurance Administrator: Nataly Lal MD, Phone: [phone] Miriam Seth LAB BLOOD ORDERABLES Final Resu lt Performing Organization Address City/[facility]/ZIP Co de Phone Number [facility] * (ABNORMAL) C-reactive protein (06/22/2025 2:30 PM EDT) [facility] C-Reactive Protein 1.69(H) <=0.50 mg/dL LAB CHEMISTRY METHOD 06/22/2025 6:41 PM EDT [facility] Blood Venous blood specimen / Unknown Venipuncture / Unknown 06/22/2025 2:30 PM EDT 06/22/2025 2:30 PM EDT Miriam Seth LAB BLOOD ORDERABLES Final Resu lt Performing Organization Address City/[facility]/ZIP Co de Phone Number [facility] [address] [place] [address], [place] [phone] * Immunoglobulin IgA (06/22/2025 2:30 PM EDT) IgA 341 61 - 348 mg/dL LAB CHEMISTRY METHOD 06/22/2025 6:41 PM EDT [facility] Blood Venous blood specimen / Unknown Venipuncture / Unknown 06/22/2025 2:30 PM EDT 06/22/2025 2:30 PM EDT Miriam Seth NP LAB BLOOD ORDERABLES Final Resu lt [facility] [address] [place] [address], [place] [phone] * ECG-Annotated (06/22/2025) us Provider Onbase MD ECG ORDERABLES Final Result * CT Abdomen Pelvis w Contrast (06/20/2025 8:49 PM EDT) Anatomical Region Laterality Modality Body Computed Tomogra phy 06/20/2025 9:51 PM EDT Impressions 06/20/2025 9:51 PM EDT Mild diffuse fatty infiltration of the liver. This document has been electronically signed by: Devyn Portillo MD on 06/20/2025 21:51:02 Narrative 06/20/2025 9:51 PM EDT INDICATION: Abdominal pain, acute, no prior medical history CT abdomen and pelvis with contrast Comparison: CT/SR - ABDOMEN AND PELVIS C- CT - 09/20/22 22:09 EST Findings: The lung bases are clear. Mild diffuse fatty infiltration of the liver. The gallbladder, spleen, pancreas, adrenals and kidneys are unremarkable. No bowel obstruction, pneumoperitoneum, or pneumatosis. Pelvic contents unremarkable. Normal appendix. No acute fracture. Procedure Note Devyn Portillo MD - 06/20/2025 INDICATION: Abdominal pain, acute, no prior medical history CT abdomen and pelvis with contrast Comparison: CT/SR - ABDOMEN AND PELVIS C- CT - 09/20/22 22:09 EST Findings: The lung bases are clear. Mild diffuse fatty infiltration of the liver. The gallbladder, spleen, pancreas, adrenals and kidneys are unremarkable. No bowel obstruction, pneumoperitoneum, or pneumatosis. Pelvic contents unremarkable. Normal appendix. No acute fracture. IMPRESSION: Mild diffuse fatty infiltration of the liver. This document has been electronically signed by: Devyn Portillo MD on 06/20/2025 21:51:[address] PROCEDURES Final Res ult * 12-Lead ECG (06/20/2025 6:12 PM EDT) Ventricular Rate ECG 62 BPM GEMUSE Atrial Rate 62 BPM GEMUSE P-R Interval 128 ms GEMUSE QRS Duration 82 ms GEMUSE Q-T Interval 454 ms GEMUSE QTc 460 ms GEMUSE P Wave [place] -4 degrees GEMUSE R [place] 39 degrees GEMUSE T [place] -14 degrees GEMUSE ECG Interpretation Normal sinus rhythm ST and T wave abnormality, consider inferior ischemia When compared with ECG of 20-SEP-2022 22:57, No significant change was found Confirmed by KRISS PARKER ([id number]) on 06/21/2025 12:27:05 PM GEMUSE 06/20/2025 6:12 PM EDT 06/21/2025 12:27 PM EDT Kavon CARMICHAEL ECG ORDERABLES Final Resul t Performing Organization Address City/[facility]/ZIP Co de Phone Number GEMUSE * hCG, serum, qualitative (06/20/2025 1:45 PM EDT) hCG Qual Negative Negative 06/20/2025 8:18 PM EDT [facility] Blood Venous blood specimen / Unknown Venipuncture / Unknown 06/20/2025 1:45 PM EDT 06/20/2025 1:52 PM EDT Leann Colby MD LAB BLOOD ORDERABLES Final Resul t Performing Organization Address City/[facility]/ZIP Co de Phone Number [facility] [address] [place] [address], [place] [phone] * Magnesium (06/20/2025 1:45 PM EDT) Only the most recent of2 resultswithin the time period is included. Pathologist [facility] Magnesium 1.9 1.9 - 2.6 mg/dL LAB CHEMISTRY METHOD 06/20/2025 6:46 PM EDT [facility] Blood Venous blood specimen / Unknown Venipuncture / Unknown 06/20/2025 1:45 PM EDT 06/20/2025 1:52 PM EDT Kavon CARMICHAEL LAB BLOOD ORDERABLES Final Result [facility] [address] [place] [address], [place] [phone] * (ABNORMAL) Lipase (06/20/2025 1:45 PM EDT) [facility] Lipase 11(L) 13 - 75 unit/L LAB CHEMISTRY METHOD 06/20/2025 2:34 PM EDT [facility] Blood Venous blood specimen / Unknown Venipuncture / Unknown 06/20/2025 1:45 PM EDT 06/20/2025 1:52 PM EDT Karlye CARMICHAEL LAB BLOOD ORDERABLES Fin al Result [facility] [address] [place] [address], [place] [phone] * (ABNORMAL) Comprehensive metabolic panel (06/20/2025 1:45 PM EDT) Only the most recent of2 resultswithin the time period is included. [facility] Sodium 135 133 - 145 mmol/L LAB CHEMISTRY METHOD 06/20/2025 2:42 PM EDT [facility] Potassium 3.1(L) 3.5 - 5.5 mmol/L LAB CHEMISTRY METHOD 06/20/2025 2:42 PM EDT [facility] Chloride 100 96 - 110 mmol/L LAB CHEMISTRY METHOD 06/20/2025 2:42 PM [facility] CO2 26 21 - 32 mmol/L LAB CHEMISTRY METHOD 06/20/2025 2:42 PM [facility] Anion Gap 9 3 - 11 LAB CHEMISTRY METHOD 06/20/2025 2:42 PM [facility] Glucose 107(H) 70 - 100 mg/dL LAB CHEMISTRY METHOD 06/20/2025 2:42 PM [facility] BUN 3(L) 5 - 25 mg/dL LAB CHEMISTRY METHOD 06/20/2025 2:42 PM [facility] Creatinine 0.89 0.50 - 1.10 mg/dL LAB CHEMISTRY METHOD 06/20/2025 2:42 PM [facility] eGFR 90 >=60 mL/min/1. 73m2 LAB CHEMISTRY METHOD 06/20/2025 2:42 PM [facility] Comment:Calculation based on the Chronic Kidney Disease Epidemiology Collaboration (CKD-EPI) equation refit without adjustment for race. BUN/Creatinine Ratio 3.4 LAB CHEMISTRY METHOD 06/20/2025 2:42 PM [facility] Calcium 9.7 8.5 - 10.5 mg/dL LAB CHEMISTRY METHOD 06/20/2025 2:42 PM [facility] AST (SGOT) 61(H) 10 - 42 unit/L LAB CHEMISTRY METHOD 06/20/2025 2:42 PM [facility] ALT (SGPT) 69(H) 10 - 60 unit/L LAB CHEMISTRY METHOD 06/20/2025 2:42 PM [facility] Alkaline Phosphatase 109 42 - 121 unit/L LAB CHEMISTRY METHOD 06/20/2025 2:42 PM [facility] Total Protein 7.3 6.0 - 8.0 g/dL LAB CHEMISTRY METHOD 06/20/2025 2:42 PM EDT [facility] Albumin 3.5 3.2 - 5.0 g/dL LAB CHEMISTRY METHOD 06/20/2025 2:42 PM EDT [facility] Total Bilirubin 0.5 0.0 - 1.4 mg/dL LAB CHEMISTRY METHOD 06/20/2025 2:42 PM EDT [facility] Blood Venous blood specimen / Unknown Venipuncture / Unknown 06/20/2025 1:45 PM EDT 06/20/2025 1:52 PM EDT Karley CARMICHAEL LAB BLOOD ORDERABLES Fin al Result [facility] [address] [place] [address], * Poc Rapid [id number], MOLECULAR (06/09/2025 12:38 PM EDT) [facility] COVID-19/SARS- COV-2 Rapid POC Negative Negative Internal Control Pass Yes Yes EXPIRATION DATE POC 05/02/27 LOT NUMBER POC [id number] Swab Nasopharyngeal structure / Unknown 06/09/2025 12:38 PM EDT Elizabeth Aleman MD POINT OF CARE TEST ENTER/EDIT ORDERABLES Final Result * POC rapid strep A manually resulted (06/09/2025 12:37 PM EDT) [facility] Rapid Strep A Screen POC Negative Negative Internal Control Pass Yes Yes EXPIRATION DATE POC 12/25/25 LOT NUMBER POC [id number] Swab Structure of anterior region of neck / Unknown 06/09/2025 12:37 PM EDT Elizabeth Aleman MD POINT OF CARE TEST ENTER/EDIT ORDERABLES Final Result * POC Influenza A/B manually resulted (06/09/2025 12:33 PM EDT) [facility] Rapid Influenza A AGN POC Negative Negative Rapid Influenza B AGN POC Negative Negative Internal Control Pass Yes Yes LOT NUMBER POC [id number] EXPIRATION DATE POC 07/31/26 Swab 06/09/2025 12:3 3 PM EDT Elizabeth Aleman MD POINT OF CARE TEST ENTER/EDIT ORDERABLES Final Result * Pulmonary function testing: Spirometry with Bronchodilator (06/02/2025 2:33 PM EDT) Impressions Lennox Anderson MD - 06/02/2025 2:33 PM EDT Pulmonary function test interpretation. Spirometry done today reveals FEV1 of 2.59 which is 92% of the predicted value, FVC is 3.50 which is 170% of the predicted value, FEV1 to FVC ratio is 88% of the predicted value, there is bronchodilator response. Flow-volume is consistent with normal pattern. Static lung volumes are elevated across the board. Diffusion lung capacity was elevated however normalized after correction for alveolar volume. This study is consistent with normal pulmonary mechanics, however if diagnosis of asthma is in question suggest methacholine challenge test. Clinical correlation is advised. Sheela Adams MD PFT ORDERABLES Final Result * Mononucleosis screen (05/31/2025 2:19 PM EDT) [facility] Monospot Negative Negative 06/01/2025 11:13 AM EDT [facility] Blood Venous blood specimen / Unknown Venipuncture / Unknown 05/31/2025 2:19 PM EDT 05/31/2025 2:19 PM EDT Elizabeth Aleman MD LAB BLOOD ORDERABLES Final Res ult [facility] [address] [place] [address], [place] [phone] * Sedimentation rate (05/31/2025 2:19 PM EDT) [facility] Sed Rate 20 0 - 20 mm/hr LAB HEMETOLOGY METHOD 05/31/2025 6:42 PM EDT [facility] Blood Venous blood specimen / Unknown Venipuncture / Unknown 05/31/2025 2:19 PM EDT 05/31/2025 2:19 PM EDT Elizabeth Aleman MD LAB BLOOD ORDERABLES Final Res ult [facility] [address] [place] [address], * (ABNORMAL) Lipid panel (06/21/2024) [facility] LDL/HDL Ratio 3 0 - 4 Triglycerides 80 0 - 150 mg/dL Cholesterol 193 0 - 200 mg/dL HDL 66 >=40 mg/dL LDL Cholesterol 111(A) 0 - 100 mg/dL Blood Venous blood specimen / Unknown Result [facility] LAB BLOOD ORDERABLES Lisa l Result * HIV Screening (08/20/2023) [facility] HIV Screening Abstracted [facility] Provider HEALTH MAINTENANCE Final Result * Hepatitis C Screening (08/20/2023) [facility] Hepatitis C Screening Abstracted Result [facility] Provider HEALTH MAINTENANCE Final Result * Cervical Cancer Screening: HPV (04/16/2023) [facility] Cervical Cancer Screening: HPV Negative Historical Provider HEALTH MAINTENANCE Final Result from Last 3 Months or Most Recently Relevant to Health Maintenance Additional Health Concerns Active Problems Noted Date Diagnosed Date Autogenerated Problem 07/05/2025 Insurance [employer] Care Teams Physical Therapy Nurse Relationship Specialty Start Date End Date Elizabeth Aleman MD [address] [phone] PCP - General Internal Medicine 10/26/24
--- OUTSIDE RECORDS SUMMARY | 2025-07-21 20:47 | XMS_ITS | Encounter Summary ---
Author Organization [facility] Address [address] [place] [address] Care Team Providers Care Business Services Administrator Name Role Phone Elizabeth Aleman MD Primary Care Provider [phone] Encounter Details Date Type Department Care Team (Late Contact Info) Description 06/10/2025 Results Follow-Up Internal Medicine - [place] [address] [phone] Leonard Ovalle [place] Social History Tobacco Use Types Packs/Day Years Used Date Smoking Tobacco: Former Smokeless Tobacco: Never Alcohol Use Standard Drinks/Week Comments No 0 (1 standard drink = 0.6 oz pur e alcohol) Comments No Sex and Gender Information Value Date Recorded Sex Assigned at Not on file Legal Sex Female 6:49 AM EST Gender Identity Not on file Sexual Orientation Not on file documented as of this encounter Plan of Treatment Upcoming Encounters Date Type Department Care Team (Late Contact Info) Description 07/27/2025 1:[address] Scan [address] [phone] 08/18/2025 4:15 PM EST Office Visit Pulmonology - [place] 175 [facility] [address] [place] [phone] Sheela Adams MD [address] [place] [phone] 09/05/2025 3:00 PM EST Appointment [facility] Endoscopy [address] [place] [phone] Jing Cole MD 299 [facility] [address] [place] [address] 09/15/2025 1:15 PM EST Office Visit Nephrology [facility] [address] [place] [phone] Shashi Howard MD 3550 [facility] [address] [place] [phone] 09/19/2025 2:30 PM EST Office Visit Internal Medicine [facility] 175 [facility] [address] [place] [phone] Elizabeth Aleman MD [address] [place] [phone] documented as of this encounter Visit Diagnoses Not on filedocumented in this encounter Additional Health Concerns Infection Onset Date Last Indicated Resolved Time C. difficile Rule-Out 06/29/2025 06/29/20252024 7:00 PM EDT documented as of this encounter Care Teams Business Services Administrator Relationship Specialty Start Date End Date Elizabeth Aleman MD 175 [facility] [address] [place] [phone] PCP - General Internal Medicine 10/26/24 documented as of this encounter
--- OUTSIDE RECORDS SUMMARY | 2025-07-21 20:47 | XMS_ITS | Encounter Summary ---
Author Organization [facility] Address [address] [place] [address] Care Team Providers Care Head Shipper Name Role Phone Elizabeth Aleman MD Primary Care Provider [phone] Encounter Details Date Type Department Care Team (Late Contact Info) Description 06/02/2025 Results Follow-Up [address] [phone] Lennox Anderson MD [address] [place] [phone] Social History Tobacco Use Types Packs/Day Years [...] 07/27/2025 1:[address] Scan [address] [phone] 08/18/2025 4:15 PM EST Office Visit Pulmonology [facility] [address] [phone] Sheela Adams MD [address] [place] [phone] 09/05/2025 3:00 PM EST Appointment [facility] Endoscopy [address] [place] [phone] Jing Cole MD 299 [facility] [address] [place] [address] 09/15/2025 1:15 PM EST Office Visit Nephrology [facility] [address] [place] [phone] Shashi Howard MD 3550 [facility] [address] [place] [phone] 09/19/2025 2:30 PM EST Office Visit Internal Medicine - [place] 175 [facility] [address] [place] [phone] Elizabeth Aleman MD [address] [place] [phone] documented as of this encounter Visit Diagnoses Not on filedocumented in this encounter Additional Health Concerns Infection Onset Date Last Indicated Resolved Time C. difficile Rule-Out 06/29/2025 06/29/20252024 7:00 PM EDT documented as of this encounter Care Teams Head Shipper Relationship Specialty Start Date End Date Elizabeth Aleman MD 175 [facility] [address] [place] [phone] PCP - General Internal Medicine 10/26/24 documented as of this encounter
== END 2025-07-21 16:23 | disposition home or self-care (01) ==
LOC: HO.HSM 15:49
PROVIDERS: PCP Internal Medicine; Visit Provider Registered Nurse
DX: R20.2 Paresthesia of skin (principal); M54.16 Radiculopathy, lumbar region; G47.00 Insomnia, unspecified; G44.209 Tension-type headache, unspecified, not intractable
CPT/HCPCS: 99214

== ENCOUNTER → 2025-07-21 15:48 | Outpatient (BNVA) | payer OTHER, SELFPAY | PROVIDERS: PCP Internal Medicine; Visit Provider Registered Nurse | DX: M54.16 Radiculopathy, lumbar region (principal); R20.2 Paresthesia of skin; G44.209 Tension-type headache, unspecified, not intractable; G47.00 Insomnia, unspecified | CPT/HCPCS: 99212 ==